=== PATIENT | male | born 1985 | race Caucasian/White ===

== ENCOUNTER 2022-01-23 14:55 | Emergency (ER) | payer MEDICAID ==
[~2022-01-23] VITALS: Ht 182.9 cm; Wt 145.4 kg
[~2022-01-23 14:55] MED LIST: NOCURR; OXYC-158 PO
[2022-01-23] MEDS ORDERED: INSU100I26 IM (15:41)
[2022-01-23] MEDS ORDERED: METF-1211 PO (15:41)
[2022-01-23 16:20] LABS: COVID AG,FIA SOURCE NASAL SWAB
[2022-01-23] MEDS ORDERED: IBUPROFEN 800 MG TABLET PO ONE (16:45)
[2022-01-23] MEDS ORDERED: NIRM1TAB PO (18:04)
[2022-01-23 18:25] VITALS: BP 142/81
== END 2022-01-23 18:28 | disposition home or self-care (01) ==
LOC: EMS 14:55
DX: U07.1 COVID-19 (principal); I10 Essential (primary) hypertension; E11.9 Type 2 diabetes mellitus without complications; E78.00 Pure hypercholesterolemia, unspecified; Z88.1 Allergy status to other antibiotic agents; Z79.84 Long term (current) use of oral hypoglycemic drugs; Z79.899 Other long term (current) drug therapy
CPT/HCPCS: 82962; 93005; 99284

== ENCOUNTER 2022-04-08 00:45 | Emergency (ER) | payer MEDICAID ==
[~2022-04-08] VITALS: Ht 180.3 cm; Wt 159.0 kg
[~2022-04-08 00:45] MED LIST changes: +INSU100I26 IM; +METF-1211 PO; +NIRM1TAB PO; -NOCURR; -OXYC-158 PO
[2022-04-08 00:48] VITALS: BP 143/84
[2022-04-08 01:35] LABS: COVID AG,FIA SOURCE NASOPHARYNGEAL
[2022-04-08 02:21] LABS: INFLUENZA TYPE A NEGATIVE FOR TYPE A (NEGATIVE); INFLUENZA TYPE B NEGATIVE FOR TYPE B (NEGATIVE)
== END 2022-04-08 04:19 | disposition home or self-care (01) ==
LOC: EMS 00:45
DX: U07.1 COVID-19 (principal); J06.9 Acute upper respiratory infection, unspecified; E11.9 Type 2 diabetes mellitus without complications; E78.00 Pure hypercholesterolemia, unspecified; I10 Essential (primary) hypertension; G89.29 Other chronic pain; Z88.1 Allergy status to other antibiotic agents
CPT/HCPCS: 87804; 99283